=== PATIENT | male | born 1970 | race Two or more races ===

== ENCOUNTER 2024-07-09 19:20 | Emergency (ER) | payer BC, SELFPAY ==
[2024-07-09 19:20] VITALS: BMI 31.8
[2024-07-09 20:16] VITALS: BP 168/108; PULSE 75; RESP 17; TEMP 36.8; O2SAT 97
--- NOTE | 2024-07-09 20:47 | PD.EDEPIST ---
ED Epistaxis RME/HPI General Chief complaint: Epistaxis/Nasal Foreign Body Stated complaint: EPISTAXIS, HTN Time Seen by Provider: 07/09/24 20:33 Source: patient Arrival date/time: 07/09/24 19:20 53-year-old male presents emergency department complaining of epistaxis and elevated blood pressure. Patient reports epistaxis lasted over 20 minutes and then resolved and noticed his blood pressure was elevated but then came back down to normal. Patient has history of hypertension but no longer taking meds after getting blood pressure under control. Patient [place] any fever, chills, headache, dizziness, vision changes, or any other associated symptom. Mode of arrival: ambulatory Limitations: no limitations Related Data Home Medications ?Medication ?Instructions ?Recorded ?Confirmed lisinopril 2.5 mg tablet 2.5 mg PO QDAY 03/12/20 03/12/20 Previous Rx's ?Medication ?Instructions ?Recorded hydroxyzine pamoate 50 mg capsule 50 mg PO TID PRN anxiety #30 caps 03/12/20 (Vistaril) Allergies Allergy/AdvReac Type Severity Reaction Status Date / Time codeine Allergy Agitated Verified 07/09/24 19:22 Review of Systems Review of Systems Systems Reviewed: All systems reviewed, normal except as documented Constitutional Constitutional: Reports system reviewed and no additional complaints, except as documented, Denies body ache(s), Denies chills and Denies fever(s) Eyes Eyes: Reports system reviewed and no additional complaints, except as documented and Denies change in vision ENT Ears, Nose, Mouth, and Throat: Reports system reviewed and no additional complaints, except as documented, Denies disequilibrium, Denies dizziness, Reports epistaxis, Denies sore throat and Denies vertigo Cardiovascular Cardiovascular: Reports system reviewed and no additional complaints, except as documented, Denies chest pain and Denies dyspnea Respiratory Respiratory: Reports system reviewed and no additional complaints, except as documented, Denies chest congestion, Denies cough and Denies dyspnea Gastrointestinal Gastrointestinal: Reports system reviewed and no additional complaints, except as documented, Denies abdominal pain, Denies nausea and Denies vomiting Musculoskeletal Musculoskeletal: Reports system reviewed and no additional complaints, except as documented, Denies abnormal gait and Denies arthralgias Integumentary/Breasts Skin/Breast: Reports system reviewed and no additional complaints, except as documented, Denies erythema, Denies rash and Denies wounds Neurologic Neurologic: Reports system reviewed and no additional complaints, except as documented, Denies abnormal gait, Denies disequilibrium, Denies dizziness and Denies vertigo Past Medical History Social History SMOKING STATUS: Never smoker ED Exam General Limitations: Present no limitations General appearance: Present alert and in no apparent distress Head Head exam: Present atraumatic Eye Eye exam: Present normal appearance, PERRL and EOMI ENT ENT exam: Present normal exam, normal oropharynx and mucous membranes moist Neck Neck exam: Present normal inspection, full ROM and trachea midline Chest Chest inspection: Present normal inspection and symmetric chest wall rise Respiratory Respiratory exam: Present normal lung sounds bilaterally Cardiovascular Cardiovascular exam: Present regular rate, normal rhythm and normal heart sounds Abdominal Exam Abdominal exam: Present soft and normal bowel sounds Extremities Exam Extremities exam: Present normal inspection and full ROM Back Exam Back exam: Present normal inspection and full ROM Neurological Exam Neurological exam: Present alert, oriented X3 and CN II-XII intact Psychiatric Psychiatric exam: Present normal affect and normal mood Skin Skin exam: Present warm, dry, intact and normal color Course Quality Measures none Vital Signs Vital signs: Vital Signs Temperature 98.2 F 07/09/24 20:16 Pulse Rate 75 07/09/24 20:16 Respiratory Rate 17 07/09/24 20:16 Blood Pressure 168/108 H 07/09/24 20:16 Pulse Oximetry (%) 97 07/09/24 20:16 Oxygen Delivery Method Room Air 07/09/24 20:16 97% room air within normal limits Epistaxis MDM Narrative MDM Narrative:: 53-year-old male past medical history of hypertension and anxiety presents emergency department complaining of epistaxis and elevated blood pressure. Patient reports epistaxis lasted over 20 minutes and then resolved and noticed his blood pressure was elevated but then came back down to normal. Patient has history of hypertension but no longer taking meds after getting blood pressure under control. Patient Nuys any fever, chills, headache, dizziness, vision changes, or any other associated symptom. On arrival patient no longer had any active nosebleed. Patient appears nontoxic and is hemodynamic stable. Patient discharged ducted to follow-up with primary care provider and return to emergency department for any worsening symptoms or as needed. Patient data External records reviewed:: [facility] previous records Clinical information provided by:: patient Social determinants that could affect healthcare access:: none Patient has the following chronic illnesses:: See chart How is presenting disease/condition affected by chronic disease/condition?: exacerbated by Evaluation data The following diagnostics were reviewed and interpreted by me:: other (specify) (N/A) Lab and/or radiology exams considered but not ordered:: N/A Interpretation Summary: N/A Medications / Prescriptions Medications or Prescriptions considered but not ordered:: N/A Medication administrations:: N/A Consultations Consultation(s) initiated? (list below): No Diagnosis Epistaxis Differential Diagnosis: anterior epistaxis and posterior epistaxis Most likely diagnosis given after review of the tests above:: Epistaxis Admission Indicated Admission indicated?: not indicated Admission Request Was there a request for admission?: No Disposition Plan Disposition Plan: Discharge Discharge Attestation Discharge Attestation: The patient and all family members were given an opportunity to ask questions and understood the discharge instructions. Discharge instructions specifically effects, indications for sooner follow up or return to the emergency department, and the expected course of current diagnosis. Patient condition: Stable Discharge Plan Plan Patient Disposition: HOME (Self Care) Disposition Comment: Stable Prescriptions/Referrals Prescriptions/Med Rec: No Action lisinopril 2.5 mg Tablet 2.5 mg PO QDAY hydroxyzine pamoate [Vistaril] 50 mg capsule 50 mg PO TID PRN (Reason: anxiety) Qty: 30 0RF Problem List Clinical Impression: Epistaxis Patient/Caregiver Discharge Instructions Discharge Activity: activity as tolerated Education Materials: Nosebleed, ED Epistaxis (Adult) Additional Instructions: Keep blood pressure log for follow-up visit with primary care provider in 2 to 3 days. Limit salt intake and processed foods. Eat plenty of fruits and vegetables and get plenty of exercise. Return to the emergency department for any worsening symptoms or as needed. Print Language: Palauan Stand Alone Forms: Anat Award Info., Patient Portal Info Letter PA/BULK [employer]OLER INSTALLER Supervising Physician PA/BULK COOLER INSTALLER Supervising Physician: Dr. Billy
== END 2024-07-09 21:16 | disposition home or self-care (01) ==
LOC: SERX 20:58
PROVIDERS: Emergency Provider Emergency Medicine; PCP Internal Medicine Cardiovascular Disease
DX: R04.0 Epistaxis (principal)
CPT/HCPCS: 99281